=== PATIENT | female | born 1975 | race Caucasian/White ===

== ENCOUNTER 2016-12-21 11:45 | Emergency (ER) | payer MEDICAID, OTHER ==
[~2016-12-21] VITALS: Ht 170.2 cm; Wt 81.9 kg
[~2016-12-21 11:45] MED LIST: CALCIUM PO; GARL500T PO; GREE1CAP PO; HEMP SEED OIL PO; MULT-516 PO
[2016-12-21] MEDS ORDERED: KETOROLAC 30 MG/1 ML ONE (12:18)
[2016-12-21] MEDS ORDERED: LORazepam 2 MG/ML, 1ML ONE (12:18)
[2016-12-21] MEDS ORDERED: LORazepam 2 MG/ML, 1ML IVPush ONE (12:30)
[2016-12-21] MEDS ORDERED: SODIUM CHLORIDE 0.9% 1,000ML IVBOLUS ONE (12:30)
[2016-12-21] MEDS ORDERED: KETOROLAC 30 MG/1 ML IVPush ONE (12:30)
[2016-12-21] MEDS ORDERED: SODIUM CHLORIDE FLUSH 10ML SYR IVF ONE (12:30)
[2016-12-21 12:37] LABS: BLOOD UREA NITROGEN 8 mg/dL (7-18)
[2016-12-21 12:43] LABS: ASPARTATE AMINO TRANSFERASE 12 U/L (15-37)
[2016-12-21 12:44] LABS: IS PT STATUS REG ER OR PRE ER? YES
[2016-12-21] MEDS ORDERED: MECLIZINE CHEWABLE 25 MG TAB ONE (14:13)
[2016-12-21] MEDS ORDERED: DEXAMETHASONE 4 MG/ML, 1ML ONE (14:13)
[2016-12-21 14:19] VITALS: BP 105/70
[2016-12-21] MEDS ORDERED: MECLIZINE CHEWABLE 25 MG TAB PO ONE (14:30)
[2016-12-21] MEDS ORDERED: DEXAMETHASONE 4 MG/ML, 1ML PO ONE (14:30)
== END 2016-12-21 15:36 | disposition home or self-care (01) ==
LOC: ED 12:30
DX: R06.00 Dyspnea, unspecified (principal); R07.9 Chest pain, unspecified; R42 Dizziness and giddiness; R06.4 Hyperventilation; F41.9 Anxiety disorder, unspecified; K21.9 Gastro-esophageal reflux disease without esophagitis
CPT/HCPCS: 36415; 71010; 80053; 84484; 85025; 85379; 85610; 85730; 93005; 96374; 96375; 99285; J1100; J1885; J2060; J7030

== ENCOUNTER 2016-12-23 11:28 | Emergency (ER) | payer MEDICAID ==
[~2016-12-23] VITALS: Ht 170.2 cm; Wt 84.1 kg
[2016-12-23] MEDS ORDERED: SODIUM CHLORIDE FLUSH 10ML SYR IVF ONE (12:30)
[2016-12-23 12:46] LABS: BLOOD UREA NITROGEN 11 mg/dL (7-18)
[2016-12-23 12:50] LABS: DAU SCREEN DISCLAIMER
[2016-12-23 12:51] LABS: IS PT STATUS REG ER OR PRE ER? YES
[2016-12-23 12:53] VITALS: BP 108/78
[2016-12-23] MEDS ORDERED: OMNIPAQUE 350 MG/ML, 100ML BOTTLE ONE (13:35)
== END 2016-12-23 14:30 | disposition home or self-care (01) ==
LOC: ED 12:14
DX: R06.00 Dyspnea, unspecified (principal); K21.9 Gastro-esophageal reflux disease without esophagitis; F17.210 Nicotine dependence, cigarettes, uncomplicated; Z88.6 Allergy status to analgesic agent; Z88.8 Allergy status to other drugs, medicaments and biological substances
CPT/HCPCS: 36415; 71275; 80048; 80307; 81003; 82040; 84484; 84703; 85025; 93005; 99285; Q9967

== ENCOUNTER 2017-03-08 13:17 | Emergency (ER) | payer MEDICAID ==
[~2017-03-08] VITALS: Ht 170.2 cm; Wt 80.0 kg
[~2017-03-08 13:17] MED LIST changes: -GARL500T PO; +GARL500T3 PO
[2017-03-08] MEDS ORDERED: KETOROLAC 30 MG/1 ML ONE (14:47)
[2017-03-08 15:00] LABS: HEMATOCRIT 48.3 % (34.6-47.8); HEMOGLOBIN 15.9 g/dL (11.7-16.4); WHITE BLOOD COUNT 12.2 x10^3/uL (3.4-10)
[2017-03-08] MEDS ORDERED: KETOROLAC 30 MG/1 ML IVPush ONE (15:00)
[2017-03-08] MEDS ORDERED: SODIUM CHLORIDE FLUSH 10ML SYR IVF ONE (15:00)
[2017-03-08] MEDS ORDERED: CEFD300C37 PO (15:03)
[2017-03-08] MEDS ORDERED: FLUT9.9S NAS (15:03)
[2017-03-08] MEDS ORDERED: ERGO500017 PO (15:03)
[2017-03-08 15:16] LABS: BLOOD UREA NITROGEN 8 mg/dL (7-18)
[2017-03-08 15:17] LABS: ASPARTATE AMINO TRANSFERASE 10 U/L (15-37)
[2017-03-08 15:18] LABS: IS PT STATUS REG ER OR PRE ER? YES
[2017-03-08 15:50] VITALS: BP 110/56
== END 2017-03-08 16:06 | disposition home or self-care (01) ==
LOC: ED 15:15
DX: R07.89 Other chest pain (principal); K21.9 Gastro-esophageal reflux disease without esophagitis; Z88.5 Allergy status to narcotic agent; Z88.8 Allergy status to other drugs, medicaments and biological substances
CPT/HCPCS: 36415; 71010; 80053; 84484; 85025; 85379; 85610; 85730; 93005; 96374; 99285; J1885

== ENCOUNTER 2017-05-12 12:06 | Emergency (ER) | payer MEDICAID ==
[~2017-05-12] VITALS: Ht 170.2 cm; Wt 74.8 kg
[~2017-05-12 12:06] MED LIST changes: +CEFD300C37 PO; +ERGO500017 PO; +FLUT9.9S NAS
[2017-05-12] MEDS ORDERED: ONDANSETRON 2MG/ML, 2ML IVPush ONE (12:30)
[2017-05-12] MEDS ORDERED: SODIUM CHLORIDE 0.9% 1,000ML IVBOLUS ONE (12:30)
[2017-05-12] MEDS ORDERED: SODIUM CHLORIDE FLUSH 10ML SYR IVF ONE (12:30)
[2017-05-12 12:43] LABS: HEMATOCRIT 51.7 % (34.6-47.8); HEMOGLOBIN 17.5 g/dL (11.7-16.4); WHITE BLOOD COUNT 14.3 x10^3/uL (3.4-10)
[2017-05-12 12:59] LABS: BLOOD UREA NITROGEN 7 mg/dL (7-18)
[2017-05-12 13:09] LABS: ASPARTATE AMINO TRANSFERASE 7 U/L (15-37)
[2017-05-12] MEDS ORDERED: ONDANSETRON 2MG/ML, 2ML ONE (13:15)
[2017-05-12] MEDS ORDERED: SODIUM CHLORIDE 0.9% 1,000 ML IV ONE (14:29)
[2017-05-12 14:35] VITALS: BP 107/73
[2017-05-12] MEDS ORDERED: OMNIPAQUE 350 MG/ML, 100ML BOTTLE ONE (15:55)
== END 2017-05-12 17:22 | disposition home or self-care (01) ==
LOC: ED 13:41
DX: K29.00 Acute gastritis without bleeding (principal); Z90.49 Acquired absence of other specified parts of digestive tract; K21.9 Gastro-esophageal reflux disease without esophagitis
CPT/HCPCS: 36415; 74177; 76700; 80053; 81003; 83690; 84703; 85025; 96361; 96374; 99285; J2405; J7030; Q9967

== ENCOUNTER 2018-10-11 08:23 | Emergency (ER) | payer MEDICAID ==
[~2018-10-11] VITALS: Ht 170.2 cm; Wt 63.0 kg
--- NOTE | 2018-10-11 09:03 | NUR ---
ROSINA ARRIVES WITH COMPLAINTS OF SOB AND CHEST PAIN. SHE STATES SHE THINKS SHE HAS WALKING PNA. SHE STATES SHE WENT TO [facility] ON SAT AND THEY D/C HER WITH ZERO CARE. SHE HAS BEEN FEELING BADLY EVER SINCE. PLACED ON MONITOR, RAILS UP.
--- NOTE | 2018-10-11 09:09 | NUR ---
PATIENT ADDED THAT SHE ALSO BELIEVES SHE HAS A KIDNEY INFECTION FROM PAINFUL FRQUENT URINATION. GOT CLEAN CATCH URINE AND SENT TO LAB LABELED IN HER PRESENCE.
[2018-10-11 10:08] LABS: MICROSCOPIC NOT IND
[2018-10-11 10:09] LABS: CULTURE INDICATED? NO
--- NOTE | 2018-10-11 10:09 | NUR ---
patient on monitor, vss.
[2018-10-11 10:26] LABS: HCG UR SG 1.007 (1.003-1.030)
--- NOTE | 2018-10-11 10:47 | NUR ---
PATIENT IN BED. NO CHANGE IN PRESENTATION. AWAITING OUTCOME.
[2018-10-11 10:57] LABS: BASOPHILS # (AUTO) 0.04 x10^3/uL (0-0.1); BASOPHILS % (AUTO) 1 % (0-1); EOSINOPHILS # (AUTO) 0.13 x10^3/uL (0-0.4); EOSINOPHILS % (AUTO) 1 % (1-7); LYMPHOCYTES # (AUTO) 1.46 x10^3/uL (1-3.4); LYMPHOCYTES % (AUTO) 16 % (22-44); MD NO; MEAN CORPUSCULAR HEMOGLOBIN 31.2 pg (27.0-34.8); MEAN CORPUSCULAR HGB CONC 33.4 g/dL (32.4-35.8); MEAN CORPUSCULAR VOLUME 93.4 fL (80-100); MEAN PLATELET VOLUME 7.9 fL (7.4-10.4); MONOCYTES # (AUTO) 0.68 x10^3/uL (0.2-0.8); MONOCYTES % (AUTO) 7 % (2-9); NEUTROPHILS # (AUTO) 6.96 x10^3/uL (1.8-6.8); NEUTROPHILS % (AUTO) 75 % (42-75); PLATELET COUNT 329 x10^3/uL (130-400); RED BLOOD COUNT 5.14 x10^6/uL (3.82-5.3); RED CELL DISTRIBUTION WIDTH 14.9 % (9.6-15.2)
[2018-10-11 11:08] LABS: ALBUMIN 3.6 g/dL (3.4-5.0); ANION GAP 3 mmol/L (5-15); CHLORIDE 115 mmol/L (98-107)
[2018-10-11 11:12] LABS: ALANINE AMINOTRANSFERASE 20 U/L (12-78); ALKALINE PHOSPHATASE 56 U/L (45-117); BILIRUBIN,TOTAL 0.8 mg/dL (0.2-1.0); CREATININE 0.61 mg/dL (0.55-1.02); TOTAL PROTEIN 6.7 g/dL (6.4-8.2)
--- NOTE | 2018-10-11 11:26 | NUR ---
patient awaiting er workup.
[2018-10-11 11:40] VITALS: BP 134/78
--- NOTE | 2018-10-11 11:41 | NUR ---
patient discharge instructions reviewed, shows understanding. patient left with follow up instructions.
== END 2018-10-11 11:44 | disposition home or self-care (01) ==
LOC: ED 09:23
DX: J45.31 Mild persistent asthma with (acute) exacerbation (principal); R42 Dizziness and giddiness; F17.210 Nicotine dependence, cigarettes, uncomplicated
CPT/HCPCS: 36415; 71046; 80053; 81003; 81025; 85025; 93005; 99284

== ENCOUNTER 2018-11-12 15:09 | Emergency (ER) | payer MEDICAID ==
[~2018-11-12] VITALS: Ht 170.2 cm; Wt 60.0 kg
[2018-11-12] MEDS ORDERED: ONDANSETRON 2MG/ML, 2ML ONE (15:42)
[2018-11-12] MEDS ORDERED: LORazepam 2 MG/ML, 1ML ONE (15:42)
[2018-11-12] MEDS ORDERED: SODIUM CHLORIDE FLUSH 10ML SYR IVF ONE (16:00)
[2018-11-12] MEDS ORDERED: LORazepam 2 MG/ML, 1ML IVPush ONE (16:00)
[2018-11-12] MEDS ORDERED: ONDANSETRON 2MG/ML, 2ML IVPush ONE (16:00)
[2018-11-12 16:03] LABS: BASOPHILS # (AUTO) 0.07 x10^3/uL (0-0.1); BASOPHILS % (AUTO) 1 % (0-1); EOSINOPHILS # (AUTO) 0.21 x10^3/uL (0-0.4); EOSINOPHILS % (AUTO) 2 % (1-7); LYMPHOCYTES # (AUTO) 2.11 x10^3/uL (1-3.4); LYMPHOCYTES % (AUTO) 18 % (22-44); MD NO; MEAN CORPUSCULAR HEMOGLOBIN 31.1 pg (27.0-34.8); MEAN CORPUSCULAR VOLUME 91.5 fL (80-100); MEAN PLATELET VOLUME 8.1 fL (7.4-10.4); MONOCYTES # (AUTO) 0.87 x10^3/uL (0.2-0.8); MONOCYTES % (AUTO) 8 % (2-9); NEUTROPHILS # (AUTO) 8.27 x10^3/uL (1.8-6.8); NEUTROPHILS % (AUTO) 72 % (42-75); PLATELET COUNT 359 x10^3/uL (130-400); RED BLOOD COUNT 5.46 x10^6/uL (3.82-5.3); RED CELL DISTRIBUTION WIDTH 15.1 % (9.6-15.2)
--- NOTE | 2018-11-12 16:05 | NUR ---
PT C/O NEAR SYNCOPAL EPISODES FOR 4 WEEKS AND WAS SEEN AT [facility] AT THAT TIME, TOLD IT WAS PNEUMONIA AND WAS SUBSEQUENTLY SEEN HERE. RECORDS FROM HERE INDICATE PT WAS AT [facility] FOR IBS SYMPTOMS AND NOT TREATED FOR SOB THERE THAT BEGAN 5 DAYS PRIOR. PT ON MONITOR AND MEDICATED PER MD. PT REFUSED ZOFRAN STATING IT IS HER USUAL IBS SYMPTOMS THAT SHE IS EXPERIENCING.
[2018-11-12 16:10] LABS: CALCIUM 9.6 mg/dL (8.5-10.1)
[2018-11-12 16:13] LABS: ALANINE AMINOTRANSFERASE 26 U/L (12-78); ALKALINE PHOSPHATASE 69 U/L (45-117); BILIRUBIN,TOTAL 1.1 mg/dL (0.2-1.0); CREATININE 0.68 mg/dL (0.55-1.02); TOTAL PROTEIN 7.2 g/dL (6.4-8.2)
[2018-11-12 16:34] LABS: ANION GAP 11 mmol/L (5-15); CHLORIDE 113 mmol/L (98-107)
[2018-11-12 17:20] LABS: MICROSCOPIC NOT IND
[2018-11-12 17:41] LABS: CULTURE INDICATED? NO
--- NOTE | 2018-11-12 17:42 | NUR ---
CHART UP FOR MD MEJIA. PT HAS BEEN SLEEPING IN [facility]. VSS.
--- NOTE | 2018-11-12 18:01 | NUR ---
PT REPORTS THATS SHE FEELS A LITTEL BETER. PT TO BE DC'D PER MD.
[2018-11-12 18:02] VITALS: BP 118/81
== END 2018-11-12 18:32 | disposition home or self-care (01) ==
LOC: ED 16:03
DX: F41.1 Generalized anxiety disorder (principal); R55 Syncope and collapse; R06.4 Hyperventilation
CPT/HCPCS: 36415; 70450; 71045; 80053; 81003; 85025; 93005; 96374; 99284; J2060